=== PATIENT | female | born 1995 | race Two or more races ===

== ENCOUNTER 2024-11-20 09:10 | Outpatient (CLI) | payer OTHER | END 2024-11-20 09:16 | disposition home or self-care (01) | LOC: PRENATAL 09:10 | PROVIDERS: ATTEND Obstetrics & Gynecology Maternal & Fetal Medicine | DX: O36.80X0 Pregnancy with inconclusive fetal viability, not applicable or unspecified (principal); Z36.82 Encounter for antenatal screening for nuchal translucency; Z14.8 Genetic carrier of other disease; O34.80 Maternal care for other abnormalities of pelvic organs, unspecified trimester; Z3A.12 12 weeks gestation of pregnancy ==

== ENCOUNTER → 2025-03-15 09:34 | Outpatient (CLI) | payer OTHER | END | disposition home or self-care (01) | LOC: PRENATAL 09:34 | PROVIDERS: ATTEND Obstetrics & Gynecology Maternal & Fetal Medicine | DX: O26.843 Uterine size-date discrepancy, third trimester (principal); O99.013 Anemia complicating pregnancy, third trimester; O34.83 Maternal care for other abnormalities of pelvic organs, third trimester; Z3A.29 29 weeks gestation of pregnancy ==